=== PATIENT | female | born 1965 | race Caucasian/White ===

== ENCOUNTER 2018-11-26 13:09 | Emergency (ER) | payer OTHER, MEDICAID ==
[~2018-11-26] VITALS: Ht 160 cm; Wt 63.5 kg
[2018-11-26] MEDS ORDERED: FLEXERIL PO (14:49)
[2018-11-26] MEDS ORDERED: NAPROSYN500 MG PO (14:49)
[2018-11-26 15:59] VITALS: BP 140/77
== END 2018-11-26 16:00 | disposition home or self-care (01) ==
LOC: M.ERS 13:09
DX: S16.1XXA Strain of muscle, fascia and tendon at neck level, initial encounter (principal); S39.012A Strain of muscle, fascia and tendon of lower back, initial encounter; V89.2XXA Person injured in unspecified motor-vehicle accident, traffic, initial encounter; Y92.89 Other specified places as the place of occurrence of the external cause; Y93.89 Activity, other specified; Y99.8 Other external cause status